=== PATIENT | male | born 2000 | race Hispanic/Latino ===

== ENCOUNTER 2023-04-02 21:41 | Emergency (ER) | payer OTHER, SELFPAY ==
[2023-04-02] MEDS ORDERED: ACETAMINOPHEN 500 MG TAB ONE (22:23)
[2023-04-02] MEDS ORDERED: IBUPROFEN 400 MG TAB ONE (22:23)
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
[2023-04-02 23:45] VITALS: TEMP 98.3
[2023-04-02 23:47] VITALS: BP 124/77; O2SAT 100
== END 2023-04-02 23:22 | disposition home or self-care (01) ==
LOC: ER 21:41
DX: S00.03XA Contusion of scalp, initial encounter (principal)
CPT/HCPCS: 70450; 72125; 99284

== ENCOUNTER 2023-06-10 23:18 | Emergency (ER) | payer SELFPAY ==
[~2023-06-10 23:18] MED LIST: NA CHLORIDE 0.9% 1,000 ML ONE; NALOXONE HCL 2 MG/2 ML VIAL ONE
--- NOTE | 2023-06-11 00:05 | ER ---
Nurse's Notes [facility] Name: Tom Wood Age: 22 yrs Sex: Male : 2000 Arrival Date: 06/10/2023 Time: 23:18 Bed External Waiting Private MD: Diagnosis: Presentation: 06/10 23:23 Chief complaint: EMS states: Patient states 22 YO male found unresponsive with pinpoint vc1 pupils. HR low 40's, O2 34%. administered 1 mg Narcan IV and 1 mg Narcan IM. 23:23 Coronavirus screen: Client denies travel out of the [place] in the last 14 days. At this vc1 time, the client does not indicate any symptoms associated with coronavirus-19. Ebola Screen: Patient negative for fever greater than or equal to 101.5 degrees Fahrenheit, and additional compatible Ebola Virus Disease symptoms Patient denies exposure to infectious person. Patient denies travel to an Ebola-affected area in the 21 days before illness onset. No symptoms or risks identified at this time. Initial Sepsis Screen: Does the patient meet any 2 criteria? No. Patient's initial sepsis screen is negative. Does the patient have a suspected source of infection? No. Patient's initial sepsis screen is negative. Risk Assessment: Do you want to hurt yourself or someone else? Patient reports no desire to harm self or others. Onset of symptoms is unknown. 23:23 Method Of Arrival: EMS: [facility] vc1 23:23 Acuity: JENNA 2 vc1 Triage Assessment: 23:23 General: Appears in no apparent distress. comfortable, Behavior is uncooperative. Pain: vc1 Denies pain. EENT: No deficits noted. Neuro: Level of Consciousness is awake, alert, obeys commands, Oriented to person, place, time, situation, Appropriate for age. 23:23 Cardiovascular: No deficits noted. Respiratory: Airway is patent Respiratory effort is vc1 even, unlabored, Respiratory pattern is regular, symmetrical. GI: No deficits noted. No signs and/or symptoms were reported involving the gastrointestinal system. : No deficits noted. No signs and/or symptoms were reported regarding the genitourinary system. Derm: No deficits noted. No signs and/or symptoms reported regarding the dermatologic system. Musculoskeletal: No deficits noted. No signs and/or symptoms reported regarding the musculoskeletal system. Historical: - Allergies: 23:57 No Known Allergies; vc1 - Home Meds: 23:57 None [Active]; vc1 - PMHx: 23:57 None; vc1 - PSHx: 23:57 None; vc1 - Immunization history:: unknown. - Social history:: Smoking status: Reported history of juuling and/or vaping. - Family history:: not pertinent. Screenin:23 [facility] ED Fall Risk Assessment (Adult) History of falling in the last 3 months, vc1 including since admission No falls in past 3 months (0 pts) Confusion or Disorientation No (0 pts) Intoxicated or Sedated No (0 pts) Impaired Gait No (0 pts) Mobility Assist Device Used No (0 pt) Altered Elimination No (0 pt) Score/Fall Risk Level 0 - 2 = Low Risk Oriented to surroundings, Maintained a safe environment, Educated pt \\T\\ family on fall prevention, incl call for assistance when getting out of bed. Abuse screen: Denies threats or abuse. Nutritional screening: No deficits noted. Tuberculosis screening: No symptoms or risk factors identified. Overdose: 23:23 [place] Suicide Severity Screening: "In the past month, have you wished you were vc1 or wished you could go to sleep and not wake up?" Patient responds "no." "In the past month, have you actually had any thoughts of killing yourself?" Patient responds "no." "In your lifetime, have you ever done anything, started to do anything, or prepared to do anything to end your life?" Patient responds "no." Pt in for accidental overdose. Vital Signs: 23:23 BP 166 / 102; Pulse 115; Resp 16; Pulse Ox 98% on R/A; vc1 Gagandeep Coma Score: 06/11 04:05 Eye Response: spontaneous(4). Motor Response: obeys commands(6). Verbal Response: sp4 oriented(5). Total: 15. ED Course: 06/10 23:23 Patient arrived in ED. wm 23:23 Arm band placed on right wrist. vc1 23:26 Jesse Griffith MD is Attending Physician. sp4 23:57 Triage completed. vc1 06/11 00:01 No provider procedures requiring assistance completed. IV discontinued, intact, vc1 bleeding controlled, No redness/swelling at site. Pressure dressing applied. Administered Medications: No medications were administered Outcome: 00:04 AMA AMA form signed vc1 00:04 Condition: good 00:04 Instructed on Have someone with him for the night. 00:04 Patient left the ED. vc1 Signatures: Mariposa Alarcon Vanessa, RN RN vc1 Jesse Griffith MD MD sp4
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
[2023-06-11 00:57] VITALS: BP 166/102; O2SAT 98
== END 2023-06-11 00:04 | disposition left against medical advice (07) ==
LOC: ER 23:18
DX: T40.601A Poisoning by unspecified narcotics, accidental (unintentional), initial encounter (principal)
CPT/HCPCS: 99283; J2310; J7030

== ENCOUNTER → 2023-06-13 | Emergency (ER) | payer SELFPAY | LOC: ER 20:53 | DX: Z02.9 Encounter for administrative examinations, unspecified (principal) ==